=== PATIENT | female | born 1960 | race Caucasian/White ===

== ENCOUNTER 2017-06-07 04:45 | Emergency (ER) | payer BC ==
[~2017-06-07] VITALS: Ht 172.7 cm; Wt 111.2 kg
[~2017-06-07 04:45] MED LIST: ADULT LOW DOSE81 M1 PO; ALTACE10 MG PO; AMLODIPINE BESYL5 MG PO; ATENOLOL50 MG PO; NORCO 5/3251 TABLET PO; SIMVASTATIN40 M1 PO
[2017-06-07 05:30] LABS: MCV 85.2 FL (83-99); MEAN PLAT.VOLUME 11.4 uM^3 (9.5-12.4); PLATELET COUNT 221 K/uL (156-360); RBC DIS.WIDTH-CV 12.8 % (11.8-14.6); RBC DIS.WIDTH-SD 39.4 % (39-53); RED BLOOD COUNT 4.93 M/uL (3.80-5.20); WHITE BLOOD COUNT 10.6 K/uL (4.1-10.2)
[2017-06-07 05:39] LABS: TROP-I INTERPRETATION NEGATIVE; TROPONIN-I < 0.01 ng/mL (0.0-0.30)
[2017-06-07 05:54] LABS: CHLORIDE 109 mEq/L (99-109); POTASSIUM 3.9 mEq/L (3.7-5.4); SODIUM 138 mEq/L (136-147)
[2017-06-07 05:55] LABS: GLUCOSE 117 mg/dL (70-99)
[2017-06-07 05:57] LABS: ANION GAP 9 MEQ/L (2-14)
[2017-06-07 05:59] LABS: GFR ESTIMATE (CALCULATED) > 59 mL/min/
[2017-06-07 06:00] LABS: UREA NITROGEN (BUN) 7 mg/dL (9-23)
[2017-06-07] MEDS ORDERED: PROAIR HFA8.5 GM IH (07:15)
[2017-06-07] MEDS ORDERED: TYLENOL WITH C1 EACH PO (07:15)
[2017-06-07 07:24] VITALS: BP 120/82
== END 2017-06-07 07:25 | disposition home or self-care (01) ==
LOC: EME 04:45
DX: J20.9 Acute bronchitis, unspecified (principal); I25.2 Old myocardial infarction; Z79.82 Long term (current) use of aspirin; Z87.891 Personal history of nicotine dependence
CPT/HCPCS: 71020; 80048; 84484; 85027; 85379; 93005; 94640; 99281; 99284; J1100